=== PATIENT | male | born 1985 | race Caucasian/White ===

== ENCOUNTER 2016-10-10 21:03 | Emergency (ER) | payer OTHER ==
[2016-10-11 00:53] VITALS: BP 142/87
--- NOTE | 2016-10-11 01:42 | Emergency Department Report ---
ED Male HPI - General Chief complaint: Urogenital-Male Stated complaint: PENILE PAIN Time Seen by Provider: 10/11/16 01:20 Source: patient, family Mode of arrival: Ambulatory Limitations: Language Barrier - History of Present Illness Initial comments: This is a 31-year-old male well-nourished with nontoxic or ill in appearance at present with a itching and burning sensation in the testicular and penile area after using Clotrimazole and Betamethasone Dipropionate 1%. Patient stated he was seen by his PCP on 09/22/2016 and was d/x with "jock itch". Patient denies penile discharge, STD concerns, CP, SOB, penile pain, testicular pain, testiuclar swelling, redness, pus or drainage. Patient denies any drug allergies. Denies significant past medical history. MD Complaint: other (testicular/penile burning sensation) -: Gradual, days(s) (13) Radiation: none Severity: mild Severity scale (0 -10): 5 Quality: other (burning) Consistency: intermittent Improves with: none Worsens with: none denies other symptoms. denies: discharge, swelling, mass, rash, urinary retention, blood in urine, dysuria, fever, nausea/vomiting, incontinence - Related Data Sexually active: Yes (spouse) Allergies Allergy/AdvReac Type Severity Reaction Status Date / Time No Known Allergies Allergy Verified 10/10/16 21:09 ED Review of Systems ROS: Stated complaint: PENILE PAIN Other details as noted in HPI Constitutional: denies: chills, fever Eyes: denies: eye pain, eye discharge, vision change ENT: denies: ear pain, throat pain Respiratory: denies: cough, shortness of breath, wheezing Cardiovascular: denies: chest pain, palpitations Endocrine: no symptoms reported Gastrointestinal: denies: abdominal pain, nausea, diarrhea Genitourinary: denies: urgency, dysuria Musculoskeletal: denies: back pain, joint swelling, arthralgia Skin: denies: rash, lesions Neurological: denies: headache, weakness, paresthesias Psychiatric: denies: anxiety, depression Hematological/Lymphatic: denies: easy bleeding, easy bruising ED Past Medical Hx - Past Medical History Previous Medical History?: Yes Additional medical history: HERPES - Surgical History Past Surgical History?: Yes Additional Surgical History: HERNIA REPAIR - Social History Smoking Status: Current Some Day Smoker Substance Use Type: Alcohol ED Physical Exam - General Limitations: Language Barrier General appearance: alert, in no apparent distress - Head Head exam: Present: atraumatic, normocephalic, normal inspection - Eye Eye exam: Present: normal appearance, PERRL, EOMI. Absent: scleral icterus, conjunctival injection, nystagmus, periorbital swelling, periorbital tenderness Pupils: Present: normal accommodation - ENT ENT exam: Present: normal exam, normal orophraynx, mucous membranes moist, TM's normal bilaterally, normal external ear exam - Neck Neck exam: Present: normal inspection, full ROM. Absent: tenderness, meningismus, lymphadenopathy, thyromegaly - Respiratory Respiratory exam: Present: normal lung sounds bilaterally. Absent: respiratory distress - Cardiovascular Cardiovascular Exam: Present: regular rate, normal rhythm. Absent: bradycardia , tachycardia, irregular rhythm, systolic murmur, diastolic murmur, rubs, gallop - GI/Abdominal GI/Abdominal exam: Present: soft, normal bowel sounds. Absent: distended, tenderness, guarding, rebound, rigid, diminished bowel sounds - Rectal Rectal exam: Present: deferred - exam: Present: normal inspection. Absent: testicular tenderness, urethral discharge, scrotal swelling, vertical testicular lie, circumcision External exam: Present: normal external exam. Absent: erythema, swelling, lesions, lacerations, ecchymosis, bleeding - Expanded Exam Expanded Male exam: Absent: phimosis, paraphimosis, penile swelling, lesions, induration, erythema, perineal induration, balanitis, priapism exam: Cremasteric Reflex Present: Left, Right - Extremities Exam Extremities exam: Present: normal inspection, full ROM, normal capillary refill. Absent: tenderness, pedal edema, joint swelling, calf tenderness - Back Exam Back exam: Present: normal inspection - Neurological Exam Neurological exam: Present: alert, oriented X3 - Psychiatric Psychiatric exam: Present: normal affect, normal mood - Skin Skin exam: Present: warm, dry, intact, normal color. Absent: rash ED Course Vital Signs 10/10/16 10/11/16 21:09 00:30 Temperature 98.0 F 97.8 F Pulse Rate 58 L 61 Respiratory 20 18 Rate Blood Pressure 138/89 Blood Pressure 142/87 [Right] O2 Sat by Pulse 100 100 Oximetry ED Medical Decision Making - Medical Decision Making Ed course: This is a 31-year-old male that c/o with burning sensation after applying clothrimazole and bathmethasone cream to tesiluar and penile region 1- I instructed patient that this is a normal feeling after applying medicatoin and to f/u with a PCP within 24 hours if symptoms dont subside with water and soap. 2- at time time of discharge, the patient does not seem toxic or ill in appearance. No acute signs of distress noted. Patient agrees to discharge treatment plan of care. No further questions noted by the patient. Critical care attestation.: If time is entered above; I have spent that time in minutes in the direct care of this critically ill patient, excluding procedure time. ED Disposition Clinical Impression: Feared complaint without diagnosis, Burning sensation Disposition: DC-01 TO HOME OR SELFCARE Is pt being admited?: No Does the pt Need Aspirin: No Condition: Stable Additional Instructions: Follow-up with her primary care doctor in 24 hours if the symptoms do not subside Referrals: PRIMARY CARE, [Primary Care Provider] - 24 Hours Forms: Work/School Release Form(ED)
== END 2016-10-11 02:30 | disposition home or self-care (01) ==
LOC: ED 21:03
DX: N48.89 Other specified disorders of penis (principal); F17.200 Nicotine dependence, unspecified, uncomplicated
CPT/HCPCS: 99282